=== PATIENT | male | born 1940 | race Caucasian/White ===

== ENCOUNTER 2024-01-24 06:41 | Day surgery (SDC) | payer OTHER, SELFPAY ==
[2024-01-24] VITALS (8 sets, daily range): BP systolic 122–166; BP diastolic 56–84; BMI 27.3
[2024-01-24] MEDS: TYLENOL 1000 MG PO (06:27)
[2024-01-24] MEDS: NORMOSOL-R/PLASMALYTE-A 1000 IV (06:43)
--- NOTE | 2024-01-24 07:05 | W.SUR.PREOP ---
Pre-Operative Surgical Note
-
I have examined this patient prior to the performance of the scheduled procedure.
The patient's condition is unchanged from the time of the current History and
Physical and the patient is able to undergo the scheduled procedure.
--- NOTE | 2024-01-24 08:47 | W.IMMPOSTOP ---
Surgical Immed Post Op Note
-
Primary Surgeon: Alton Elliott MD
Assisting Surgeon: None
Pre-op Diagnosis: Right inguinal hernia
Post-op Diagnosis: Same
Procedure Performed: Open right inguinal hernia repair with mesh
Anesthesia Type: General
Specimen / Cultures:
1. Right cord lipoma
2. Right inguinal nerve
Estimated Blood Loss: 3 cc
Complications: None
Operative Findings: Sliding indirect inguinal hernia containing ?Bladder, reduced. Floor reinforced with a 7 x 15 cm Bard flat mesh cut to size.
--- NOTE | 2024-01-24 08:49 | OR.RPT ---
Operative Report
Operative Report
Patient Name: Leonard Srinivasan
: 1940
Date of Operation: 01/24/2024
Preoperative Diagnosis: Reducible Inguinal hernia, right
Postoperative Diagnosis: Same
Procedure(s):
Open Inguinal Hernia Repair
Surgeon(s):
Dr. Elliott
Digital Communications Manager(s):
JOSI Parra
Anesthesia: General
Estimated Blood Loss: 3 cc
Urine Output: None
Drains/Lines/Implants: 3 x 6 inch Bard Flat Mesh cut to size
Specimens:
1. Right inguinal nerve
2. Cord lipoma
Indication for surgery: The patient has a history of groin pain and some asymmetry noted on exam and was found to have a right inguinal Hernia. Following review of therapeutic options they has elected to undergo an open repair
Operative Findings: Sliding indirect inguinal hernia containing ?Bladder, reduced. Floor reinforced with a 7 x 15 cm Bard flat uncoated polypropylene mesh cut to size.
Details of the operation:
After induction of general anesthesia, the patient was clipped, prepped and draped in the supine position. A team timeout was performed confirming administration of DVT prophylaxis, IV antibiotics and SCDs. The ASIS and pubic tubercle were marked
and an incision was chosen along the course of a skin line. The skin was anesthestized with Lidocaine. An incision was made through the skin line and dissection carried down through subcutaneous tissue and Donal's fascia. The superficial
epigastric vein was identified and ligated. A Small [place] wound retractor was used to provide exposure. The external oblique fibers were then divided in the direction of travel. The ilioinguinal nerve was identified and removed and sent as a
specimen. Dissection was carried down to the floor, which revealed the following:
At the site of the indirect (internal) ring, there was a moderate size protrusion of preperitoneal fat, the hernia sac was identified, dissected and reduced off the cord structures. The hernia sac was opened and noted to have a sliding component
medially with possible portion of the bladder that was not violated. The hernia sac defect was closed and reduced into the abdomen.
A cord lipoma was also identified and resected.
The direct space, floor of the canal revealed no weakness.
The floor of the canal was then reconstructed by placing a 6x3 in BARD flat polypropylene mesh trimmed to size and secured it in place with interrupted 0-PDS sutures medially at the pubic tubercle, inferiorly along the inguinal ligament,
laterally/superiorly in the conjoint tendon. A slit was made in the mesh just wide enough to accommodate the cord this was also reapproximated with the PDS suture. Care was taken not to injure or entrap any nerves. The external oblique fibers were
then closed using a running 2-0 Vicryl suture. Donal's fascia was then closed with interrupted 3-0 Vicryl suture. The skin was closed in layers with interrupted 3-0 vicryl deep dermals followed by a running subcuticular 4-0 Monocryl followed by
dermabond. The patient returned to the Recovery Room in stable condition. Sponge and instrument counts were correct. No specimens sent to Pathology.
I was the attending physician and performed the procedure with assistance of the PA above. The assistance of JOSI Parra was required due to the complexity of the procedure. During the procedure Ria assisted with retraction, resection, and
closure of the wound. I was present for all portions of the case, excluding skin closure.
Alton Elliott MD
== END 2024-01-24 10:15 | disposition home or self-care (01) ==
LOC: SDS 06:41
PROVIDERS: ATTENDING PHYSICIAN Surgery
DX: K40.90 Unilateral inguinal hernia, without obstruction or gangrene, not specified as recurrent (principal)
CPT/HCPCS: 49525; 88304; 88305; C1781; C1894